=== PATIENT | female | born 1955 | race Caucasian/White ===

== ENCOUNTER 2024-04-03 06:52 | Day surgery (SDC) | payer MEDICARE ==
[~2024-04-03 06:52] MED LIST: Midazolam 1 MG/ML 2 ML SDV ONE; Propofol 200 MG/20 ML SDV ONE; fentaNYL 50 MCG/ML SDV ONE
[2024-04-03] MEDS: Lactated Ringers 1,000 ML IV SCH (07:29)
[2024-04-03] MEDS ORDERED: Propofol 200 MG/20 ML SDV ONE (08:59)
== END 2024-04-03 10:40 | disposition home or self-care (01) ==
LOC: JP.SDS 06:52
PROVIDERS: ATTEND Family Medicine
DX: Z12.11 Encounter for screening for malignant neoplasm of colon (principal); K57.30 Diverticulosis of large intestine without perforation or abscess without bleeding; Z80.0 Family history of malignant neoplasm of digestive organs
CPT/HCPCS: G0105; J2250; J2704; J3010; J7120; 00812-QZ

== ENCOUNTER 2024-09-28 06:41 | Day surgery (SDC) | payer MEDICARE ==
[~2024-09-28 06:41] MED LIST changes: -Midazolam 1 MG/ML 2 ML SDV ONE; -Propofol 200 MG/20 ML SDV ONE; +Sodium Chloride 0.9% 10 ML Syringe FLUSH PRN; -fentaNYL 50 MCG/ML SDV ONE
[2024-09-28] MEDS: Sodium Chloride 0.9% 10 ML Syringe FLUSH ONE (07:18)
== END 2024-09-28 09:11 | disposition home or self-care (01) ==
LOC: JP.SDS 06:41
PROVIDERS: ATTEND Ophthalmology
DX: H25.11 Age-related nuclear cataract, right eye (principal); E66.9 Obesity, unspecified
CPT/HCPCS: 66984; V2632; 00142-QZ

== ENCOUNTER 2025-04-19 08:48 | Day surgery (SDC) | payer MEDICARE ==
[~2025-04-19 08:48] MED LIST changes: +Propofol 200 MG/20 ML SDV ONE; -Sodium Chloride 0.9% 10 ML Syringe FLUSH PRN; +fentaNYL 50 MCG/ML SDV ONE
[2025-04-19] MEDS: Lactated Ringers 1,000 ML IV SCH (09:38)
== END 2025-04-19 11:00 | disposition home or self-care (01) ==
LOC: JP.SDS 08:48
PROVIDERS: ATTEND Surgery
DX: K20.90 Esophagitis, unspecified without bleeding (principal); K22.89 Other specified disease of esophagus
CPT/HCPCS: 00731-QZ; 88305; J2704; J3010; J7120